=== PATIENT | female | born 1985 | race Caucasian/White ===

== ENCOUNTER 2018-01-11 19:54 | Emergency (ER) | payer OTHER ==
[~2018-01-11] VITALS: Ht 175.3 cm; Wt 80.5 kg
[2018-01-11 20:25] LABS: BASOPHIL (%) 0.1 % (0-1); EOSINOPHIL (%) 0.2 % (0-5); HEMOGLOBIN 12.2 G/DL (11.9-15.5); IMMATURE GRANULOCYTE (%) 0.4 % (0.0-0.7); LYMPHOCYTE (%) 13.9 % (15-42); LYMPHOCYTE COUNT 1.3 K/uL (1.0-2.8); MCH 28.7 PG (29.0-34.0); MCHC 34.9 G/DL (30.0-36.0); MCV 82.4 FL (83-99); MONOCYTE (%) 8.4 % (3-12); MONOCYTE COUNT 0.8 K/uL (0-0.8); NEUTROPHIL COUNT 7.3 K/uL (1.8-6.4); PLATELET COUNT 285 K/uL (156-360); RBC DIS.WIDTH-CV 13.8 % (11.8-14.6); RBC DIS.WIDTH-SD 41.3 % (39-53); RED BLOOD COUNT 4.25 M/uL (3.80-5.20); WHITE BLOOD COUNT 9.5 K/uL (4.1-10.2)
[2018-01-11 20:36] LABS: CHLORIDE 106 mEq/L (99-109); POTASSIUM 3.7 mEq/L (3.7-5.4); SODIUM 142 mEq/L (136-147)
[2018-01-11 20:38] LABS: GLUCOSE 99 mg/dL (70-99)
[2018-01-11 20:42] LABS: CREATININE 0.8 mg/dL (0.6-1.3); GFR ESTIMATE (CALCULATED) > 59 mL/min/
[2018-01-11 20:43] LABS: APPEARANCE SL.HAZY ((CLEAR)); BILIRUBIN NEGATIVE; BLOOD MODERATE; COLOR YELLOW ((YELLOW)); GLUCOSE (STRIP) NEGATIVE; KETONES NEGATIVE; LEUKOCYTES LARGE; NITRITE NEGATIVE; PROTEIN (STRIP) NEGATIVE; SPECIFIC GRAVITY 1.015 (1.000-1.030)
[2018-01-11 20:43] LABS: UREA NITROGEN (BUN) 8 mg/dL (9-23)
[2018-01-11 20:54] LABS: BACTERIA RARE /HPF; EPITHELIAL CELLS 1+ /HPF; MUCUS TRACE /LPF; UCUL ADDED? YES; WHITE BLOOD CELLS 20-30 /HPF (0-5)
[2018-01-11 22:49] LABS: TOTAL PROTEIN 7.3 g/dL (6.4-8.3)
[2018-01-11 22:50] LABS: TOTAL BILIRUBIN 0.5 mg/dL (0.0-1.0)
[2018-01-11 22:52] LABS: ALKALINE PHOSPHATASE 78 IU/L (3-129)
[2018-01-11 22:55] LABS: ALT (GPT) 16 IU/L (3-49); AST (GOT) 13 IU/L (2-34)
[2018-01-11 22:56] LABS: LIPASE 12 U/L (1.0-51.0)
[2018-01-11 23:58] LABS: APPEARANCE CLEAR ((CLEAR)); BILIRUBIN NEGATIVE; BLOOD SMALL; COLOR STRAW ((YELLOW)); GLUCOSE (STRIP) NEGATIVE; KETONES 5; LEUKOCYTES SMALL; NITRITE NEGATIVE; PROTEIN (STRIP) NEGATIVE; UROBILINOGEN 0.2 MG/DL (0.2-1.0)
[2018-01-12] MEDS ORDERED: CIPRO500 MG PO (00:25)
[2018-01-12] MEDS ORDERED: FLAGYL500 MG PO (00:25)
[2018-01-12 00:42] LABS: BACTERIA NONE SEEN /HPF; EPITHELIAL CELLS RARE /HPF; MUCUS NONE SEEN /LPF; RED BLOOD CELLS 0-5 /HPF (0-5); UCUL ADDED? NO; WHITE BLOOD CELLS 0-5 /HPF (0-5)
[2018-01-12 01:45] VITALS: BP 134/82
== END 2018-01-12 01:57 | disposition home or self-care (01) ==
LOC: EME 19:54
PROVIDERS: Emergency Medicine
DX: A04.9 Bacterial intestinal infection, unspecified (principal); Z98.890 Other specified postprocedural states
CPT/HCPCS: 71046; 72126; 72129; 74177; 80048; 80053; 81003; 83605; 83690; 85025; 87086; 99281; 99285; J2270; J2405; J7030